=== PATIENT | male | born 1990 | race Caucasian/White ===

== ENCOUNTER 2016-09-09 09:35 | Emergency (ER) | payer BC ==
--- NOTE | 2016-09-15 16:08 | ER ---
ADMIT: 09/09/2016 RM/LOC: ER [facility] MR#: [id number] [address] [facility] [id number] [place], [place] [id number] PAOLO MANTILLA [address] [place] [address] Emergency Room Report SEX: M AGE: 26 : 1990 DATE: 09/09/2016 CHIEF COMPLAINT: Chest pain. HISTORY OF PRESENT ILLNESS: A 26-year-old white male coming in with chest pain reproducible about the right sternal rib joint about the second rib, third rib. He feels kind of a palpitation there. EKG and chest x-ray were negative. He has no risk factors whatsoever. I think this is all chest wall pain. 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 When stop the weightlifting, he can use either Motrin 800 or Naprosyn 500 as directed. The Naprosyn would be q.12, the Motrin would be q.6. Again, he can use an [id number]. The Naprosyn is two pills, Motrin would be four pills. I explained again no weight that would involve bench presses or anything that would irritate his pecs. CONDITION ON DISCHARGE: Good. Sanchez Miranda MD/ nina JOB #: [id number] CC: Sanchez Miranda MD, Attending Physician Gerardo Carcamo MD, Family Physician
== END 2016-09-09 11:00 | disposition home or self-care (01) ==
LOC: ER 09:35
DX: R07.89 Other chest pain (principal); F41.9 Anxiety disorder, unspecified